=== PATIENT | female | born 1995 | race American Indian/Alaskan Native ===

== ENCOUNTER 2018-10-10 19:46 | Emergency (ER) | payer BC ==
[2018-10-10 20:29] VITALS: BP 110/78
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
== END 2018-10-10 21:03 | disposition home or self-care (01) ==
LOC: ED 19:46
DX: M54.89 Other dorsalgia (principal); Z79.899 Other long term (current) drug therapy; V89.2XXA Person injured in unspecified motor-vehicle accident, traffic, initial encounter; Y93.89 Activity, other specified; Y92.89 Other specified places as the place of occurrence of the external cause; Y99.8 Other external cause status
CPT/HCPCS: 99281